=== PATIENT | male | born 1960 | race Caucasian/White ===

== ENCOUNTER 2021-08-03 20:03 | Emergency (ER) | payer BC ==
[~2021-08-03] VITALS: Ht 172.7 cm; Wt 106.0 kg
[~2021-08-03 20:03] MED LIST: AUGMENTIN875TAB PO; BACTRIM DS1 TAB PO; CIPROFLOXACN500 MG PO; DOXYCYCL HYC100 MG PO; EQL IBUPROFEN200 MG PO; FLEXERIL OR; FLEXERIL PO; LEVAQUIN750 MG PO; LORTAB 1010 MG PO; LORTAB 5 OR; LORTAB5 PO; LOTRISONE CREAM15 G1 EX; METRONIDAZOL500 MG PO; MUCINEX600 MG PO; NAPROSYN500 MG PO; NAPROXEN500 MG PO; NO; NO HOME MEDS; ONDANSETRON4 MG PO; PENICILLIN VK250 MG PO; PERCOCET 10/31 COMBO PO; PERCOCET1 TA4 PO; PREDNISONE20 MG PO; ROCEPHIN 1 GM1 GM IV; TOBRAMYCIN0.3 % OU
[2021-08-03 21:44] LABS: HEMATOCRIT 39.7 % (39.0-50.0); IMMATURE GRANULOCYTES 0.1 % (0.0-5.0); MEAN CELL VOLUME 79.9 fL CALC (80.0-100.0); MEAN CORPUSCULAR HGB 26.2 pG CALC (26.0-32.0); MEAN CORPUSCULAR HGB CONC 32.7 g/dL CAL (32.0-36.0); NEUT# 6.29 thou/uL (1.82-7.42); RED BLOOD COUNT 4.97 mill/uL (4.70-6.10); RED CELL DISTRI WIDTH 13.7 % (11.5-15.5); URINE BILIRUBIN - DIPSTICK NEGATIVE (NEGATIVE); URINE BLOOD DIPSTICK NEGATIVE (NEGATIVE); URINE COLOR YELLOW; URINE GLUCOSE - DIPSTICK >=1000 mg/dL (NEGATIVE); URINE KETONE NEGATIVE (NEGATIVE); URINE LEUK ESTERASE NEGATIVE (NEGATIVE); URINE PH 5.5 (4.5-8.0); URINE PROTEIN - DIPSTICK NEGATIVE (NEG-TRACE); URINE SPECIFIC GRAVITY >=1.030; URINE UROBILINOGEN - DIPSTICK 0.2 E.U./dL (0.2)
[2021-08-03 21:50] LABS: URINE NITRITE - DIPSTICK NEGATIVE (Negative)
[2021-08-03 22:02] LABS: ALBUMIN 4.5 g/dL (3.2-5.0); ALKALINE PHOSPHATASE 110 u/l (38-126); AMYLASE 59 u/l (30-110); ANION GAP 16 (6-22 (CALC)); BILIRUBIN, TOTAL 0.7 mg/dL (0.0-1.4); BUN 15 mg/dL (9-20); BUN/CREATININE RATIO 16 (12-20 (CALC)); CARBON DIOXIDE 23 mmol/l (22-30); CHLORIDE 100 mmol/l (95-108); CREATININE 0.9 mg/dL (0.7-1.3); GFR > 60 ML/MIN (>=60 (CALC)); GFR FOR AFR.AMER. > 60 ML/MIN (>=60 (CALC)); LIPASE 48 u/l (23-300); POTASSIUM 3.9 mmol/l (3.5-5.1); SGOT/AST 19 u/l (17-59); SODIUM 135 mmol/l (137-146)
[2021-08-03] MEDS ORDERED: NAPROXEN500 MG PO (23:13)
[2021-08-03 23:24] VITALS: BP 118/76
[2021-08-05] MEDS ORDERED: TREXALL10 MG PO (10:19)
[2021-08-05] MEDS ORDERED: FOLIC ACI1 PO (10:19)
== END 2021-08-03 23:31 | disposition home or self-care (01) | DRG 395 ==
LOC: ED 20:03
PROVIDERS: Emergency Medicine
DX: K40.90 Unilateral inguinal hernia, without obstruction or gangrene, not specified as recurrent (principal); M06.9 Rheumatoid arthritis, unspecified
CPT/HCPCS: Q9967

== ENCOUNTER 2021-09-01 06:50 | Day surgery (SDC) | payer BC ==
[~2021-09-01] VITALS: Ht 172.7 cm; Wt 111.1 kg
[~2021-09-01 06:50] MED LIST changes: +FOLIC ACI1 PO; +TREXALL10 MG PO
[2021-09-01 07:57] LABS: ALBUMIN 3.7 g/dL (3.2-5.0); ALKALINE PHOSPHATASE 87 u/l (38-126); ANION GAP 11 (6-22 (CALC)); BILIRUBIN, TOTAL 0.8 mg/dL (0.0-1.4); BUN 17 mg/dL (9-20); BUN/CREATININE RATIO 27 (12-20 (CALC)); CARBON DIOXIDE 24 mmol/l (22-30); CHLORIDE 104 mmol/l (95-108); CREATININE 0.6 mg/dL (0.7-1.3); GFR > 60 ML/MIN (>=60 (CALC)); GFR FOR AFR.AMER. > 60 ML/MIN (>=60 (CALC)); POTASSIUM 4.1 mmol/l (3.5-5.1); SGOT/AST 20 u/l (17-59); SODIUM 136 mmol/l (137-146); TOTAL PROTEIN 6.5 g/dL (6.3-8.2)
[2021-09-01] MEDS ORDERED: PERCOCET 5/321 COMBO PO (08:29)
[2021-09-01 13:36] VITALS: BP 122/68
== END 2021-09-01 10:40 | disposition home or self-care (01) | DRG 351 ==
LOC: ORM 06:50
PROVIDERS: Nurse Anesthetist, Certified Registered; ATTEND Surgery
PROC: 0YUA4JZ Supplement Bilateral Inguinal Region with Synthetic Substitute, Percutaneous Endoscopic Approach (ICD-10-PCS; principal; 2021-09-01)
DX: K40.00 Bilateral inguinal hernia, with obstruction, without gangrene, not specified as recurrent (principal); D17.6 Benign lipomatous neoplasm of spermatic cord; K50.90 Crohn's disease, unspecified, without complications; M06.9 Rheumatoid arthritis, unspecified
CPT/HCPCS: C1781; J0131

== ENCOUNTER 2022-04-12 18:42 | Emergency (ER) | payer BC ==
[~2022-04-12] VITALS: Ht 172.7 cm; Wt 95.9 kg
[~2022-04-12 18:42] MED LIST changes: +PERCOCET 5/321 COMBO PO
[2022-04-12] MEDS ORDERED: METFORMIN HCL500 M1 PO (19:32)
[2022-04-12] MEDS ORDERED: FLEXERIL5 M1 PO (19:33)
[2022-04-12] MEDS ORDERED: MUPIROCIN21 (19:33)
[2022-04-12 21:49] LABS: HEMATOCRIT 35.1 % (39.0-50.0); HEMOGLOBIN 11.4 g/dl (14.0-18.0); IMMATURE GRANULOCYTES 0.3 % (0.0-5.0); MEAN CELL VOLUME 83.2 fL CALC (80.0-100.0); MEAN CORPUSCULAR HGB CONC 32.5 g/dL CAL (32.0-36.0); NEUT# 5.77 thou/uL (1.82-7.42); RED BLOOD COUNT 4.22 mill/uL (4.70-6.10); RED CELL DISTRI WIDTH 12.8 % (11.5-15.5)
[2022-04-12] MEDS ORDERED: BACTRIM DS1 TAB PO (21:49)
[2022-04-12] MEDS ORDERED: KEFLEX500 MG PO (21:49)
[2022-04-12] MEDS ORDERED: LORTAB 1010 MG PO (21:49)
[2022-04-12 22:02] LABS: ALKALINE PHOSPHATASE 84 u/l (38-126); ANION GAP 14 (6-22 (CALC)); BILIRUBIN, TOTAL 0.7 mg/dL (0.0-1.4); BUN 15 mg/dL (9-20); BUN/CREATININE RATIO 16 (12-20 (CALC)); CARBON DIOXIDE 25 mmol/l (22-30); CHLORIDE 102 mmol/l (95-108); CREATININE 0.9 mg/dL (0.7-1.3); GFR FOR AFR.AMER. > 60 ML/MIN (>=60 (CALC)); GFR OTHER RACES > 60 ML/MIN (>=60 (CALC)); POTASSIUM 3.7 mmol/l (3.5-5.1); SGOT/AST 35 u/l (17-59); SODIUM 138 mmol/l (137-146)
[2022-04-12 22:05] LABS: ALBUMIN 4.6 g/dL (3.2-5.0); TOTAL PROTEIN 7.9 g/dL (6.3-8.2)
[2022-04-12 22:22] VITALS: BP 154/84
== END 2022-04-12 22:23 | disposition home or self-care (01) | DRG 603 ==
LOC: ED 18:42
PROVIDERS: Emergency Medicine
DX: L02.212 Cutaneous abscess of back [any part, except buttock and flank] (principal)

== ENCOUNTER 2022-04-13 18:11 | Emergency (ER) | payer BC ==
[~2022-04-13] VITALS: Ht 172.7 cm; Wt 100.0 kg
[~2022-04-13 18:11] MED LIST changes: +FLEXERIL5 M1 PO; +KEFLEX500 MG PO; +METFORMIN HCL500 M1 PO; +MUPIROCIN21
[2022-04-13 19:38] VITALS: BP 119/69
[2022-04-13 20:00] VITALS: BP 112/65
[2022-04-13 20:30] VITALS: BP 119/72
[2022-04-19] MEDS ORDERED: IBUPROFEN600 MG PO (09:34)
== END 2022-04-13 20:38 | disposition home or self-care (01) | DRG 951 ==
LOC: ED 18:11
DX: Z48.01 Encounter for change or removal of surgical wound dressing (principal); E11.9 Type 2 diabetes mellitus without complications; Z79.84 Long term (current) use of oral hypoglycemic drugs